=== PATIENT | male | born 1950 | race Hispanic/Latino ===

== ENCOUNTER → 2017-03-01 | Outpatient (CLI) | payer MEDICARE | END | disposition home or self-care (01) | LOC: OIH 11:15 | PROVIDERS: ATTEND Internal Medicine | DX: M47.896 Other spondylosis, lumbar region (principal) | CPT/HCPCS: 72100 ==

== ENCOUNTER 2017-05-16 19:39 | Emergency (ER) | payer MEDICARE ==
[2017-05-16] MEDS ORDERED: ONDANSETRON HCL MDV 20ML 2 MG/ML VIAL ONE (20:13)
[2017-05-16] MEDS ORDERED: SODIUM CHLORIDE 0.9% 1000ML 1,000 ML IV ONE (20:13)
[2017-05-16] MEDS ORDERED: MORPHINE SULFATE 4 MG/1ML SYG ONE (20:14)
[2017-05-16 20:35] LABS: BASOPHILS % (AUTO) 0.3 % (0.0-5.0); EOSINOPHILS % (AUTO) 0.9 % (0.0-8.0); HEMATOCRIT 48.7 % (42-54); LYMPHOCYTES % (AUTO) 28.9 % (21.0-51.0); MEAN CORPUSCULAR HEMOGLOBIN 30.1 pg (27.0-33.0); MEAN CORPUSCULAR HGB CONC 34.4 g/dL (32.0-36.0); MEAN CORPUSCULAR VOLUME 87.3 fL (79-99); MONOCYTES % (AUTO) 8.6 % (3.0-13.0); NEUTROPHILS % (AUTO) 61.3 % (40.0-77.0); NUCLEATED RED BLOOD CELLS 0.1 % (0.0-0.19); PLATELET COUNT (AUTO) 237 K/uL (130-400); RED BLOOD CELL COUNT(AUTO) 5.57 MIL/uL (4.50-6.20); RED CELL DISTRIBUTION WIDTH 13.5 % (11.0-15.5); WHITE BLOOD COUNT (AUTO) 8.1 K/uL (4.8-10.8)
[2017-05-16 20:45] LABS: CREATININE 0.9 mg/dL (0.5-1.5); POTASSIUM 4.1 mmol/L (3.5-5.1)
[2017-05-16 20:50] LABS: ALBUMIN 4.4 g/dL (3.5-5.0); BILIRUBIN,TOTAL 0.6 mg/dL (0.2-1.0); TOTAL PROTEIN, SERUM 8.6 g/dL (6.0-8.3)
[2017-05-16] MEDS ORDERED: IOPAMIDOL-370 75 ML VIAL IV ONE (21:18)
== END 2017-05-16 23:44 | disposition home or self-care (01) ==
LOC: EDH 19:39
DX: K52.9 Noninfective gastroenteritis and colitis, unspecified (principal)
CPT/HCPCS: 36415; 74177; 80053; 82550; 83690; 84484; 85025; 93005; 96361; 96374; 96375; 99285; J2270; J7030; Q9967

== ENCOUNTER → 2024-09-19 | Outpatient (CLI) | payer MEDICARE ==
--- NOTE | 2024-09-19 13:58 | HMCIMG ---
Exam: NONCONTRAST CT BRAIN REASON: FALL. COMPARISON: None. TECHNIQUE: Images are obtained from vertex to the skull base. The exam was performed without IV contrast. FINDINGS: There is normal appearing brain parenchyma. There are no focal mass lesions. There is is no evidence of intracranial hemorrhage or acute stroke. There is mild global atrophy. Ventricles and sulci appear normal. Posterior fossa and brainstem structures are unremarkable. Paranasal sinuses and remaining extracranial soft tissues appear normal as well. IMPRESSION: 1. Normal noncontrast CT brain 2. Mild global atrophy. CT was performed with one or more following dose reduction techniques: automated exposure control, adjustment of the mA and kv according to patient's size, or use of a iterative reconstruction technique.
--- NOTE | 2024-09-19 16:57 | HMCIMG ---
EXAM: CR Cervical spine, 5 View. CLINICAL HISTORY: CERVICAL RADCULOPATHY/HEAD INJURY/FALL COMPARISON: 05/04/2023 FINDINGS: BONES: No acute fracture or aggressive appearing osseous lesion. DISCS/DEGENERATIVE CHANGES: There are mild degenerative changes in the lower cervical spine. SOFT TISSUES: No prevertebral soft tissue swelling. The visualized lung apices are clear. IMPRESSION: No acute cervical spine abnormality. Mild degenerative changes in the lower cervical spine which are stable when compared with the prior exam. /[place]
== END | disposition home or self-care (01) ==
LOC: RAH 12:58
PROVIDERS: ATTEND Internal Medicine
DX: S09.90XA Unspecified injury of head, initial encounter (principal); M47.22 Other spondylosis with radiculopathy, cervical region; G31.89 Other specified degenerative diseases of nervous system; W19.XXXA Unspecified fall, initial encounter; Y93.89 Activity, other specified; Y92.89 Other specified places as the place of occurrence of the external cause; Y99.8 Other external cause status
CPT/HCPCS: 70450; 72040